=== PATIENT | female | born 1960 | race Caucasian/White ===

== ENCOUNTER 2024-03-24 14:40 | Outpatient (CLI) | payer MEDICAID | END 2024-03-24 23:59 | disposition home or self-care (01) | LOC: MRI 14:40 | PROVIDERS: ATTEND Nurse Practitioner Primary Care | DX: M25.461 Effusion, right knee (principal); M71.21 Synovial cyst of popliteal space [Baker], right knee; M25.761 Osteophyte, right knee; M17.11 Unilateral primary osteoarthritis, right knee | CPT/HCPCS: 73721 ==